=== PATIENT | female | born 1950 | race Two or more races ===

== ENCOUNTER → 2019-06-17 | Outpatient (CLI) | payer OTHER | END | disposition home or self-care (01) | LOC: RAD 12:34 | DX: M17.11 Unilateral primary osteoarthritis, right knee (principal) ==

== ENCOUNTER 2019-08-06 15:07 | Outpatient (CLI) | payer OTHER | END 2019-08-06 15:10 | disposition home or self-care (01) | LOC: RAD 15:07 | DX: M25.562 Pain in left knee (principal); M25.561 Pain in right knee ==

== ENCOUNTER 2020-04-26 12:41 | Outpatient (CLI) | payer OTHER | END 2020-04-26 12:53 | disposition home or self-care (01) | LOC: RAD 12:41 | PROVIDERS: ATTEND Physical Medicine & Rehabilitation | DX: M54.2 Cervicalgia (principal); M79.642 Pain in left hand; M79.641 Pain in right hand; M13.0 Polyarthritis, unspecified ==

== ENCOUNTER 2020-05-29 14:00 | Outpatient (CLI) | payer OTHER | END 2020-05-29 14:37 | disposition home or self-care (01) | LOC: NUCLEAR 14:00 | PROVIDERS: ATTEND Family Medicine | DX: M81.0 Age-related osteoporosis without current pathological fracture (principal) ==

== ENCOUNTER 2021-07-10 08:00 | Outpatient (CLI) | payer OTHER | END 2021-07-10 08:30 | disposition home or self-care (01) | LOC: PPH VACUNA 08:00 | PROVIDERS: ATTEND Emergency Medicine Pediatric Emergency Medicine | DX: Z23 Encounter for immunization (principal) ==

== ENCOUNTER 2021-11-29 07:44 | Outpatient (CLI) | payer OTHER | END 2021-11-29 07:55 | disposition home or self-care (01) | LOC: SONOGRAMA 07:44 | PROVIDERS: ATTEND Family Medicine | DX: R31.21 Asymptomatic microscopic hematuria (principal); R82.998 Other abnormal findings in urine ==

== ENCOUNTER 2022-02-19 08:00 | Outpatient (CLI) | payer OTHER | END 2022-02-19 08:30 | disposition home or self-care (01) | LOC: PPH VACUNA 08:00 | PROVIDERS: ATTEND Emergency Medicine Pediatric Emergency Medicine | DX: Z23 Encounter for immunization (principal); Z71.85 Encounter for immunization safety counseling ==

== ENCOUNTER 2022-06-04 15:38 | Outpatient (CLI) | payer OTHER | END 2022-06-04 15:46 | disposition home or self-care (01) | LOC: RAD 15:38 | DX: M79.671 Pain in right foot (principal) ==

== ENCOUNTER 2022-09-10 08:10 | Outpatient (CLI) | payer OTHER | END 2022-09-10 08:29 | disposition home or self-care (01) | LOC: MAMO-SONO 08:10 | PROVIDERS: ATTEND Family Medicine | DX: N60.11 Diffuse cystic mastopathy of right breast (principal); N60.12 Diffuse cystic mastopathy of left breast ==

== ENCOUNTER 2022-09-16 08:27 | Outpatient (CLI) | payer OTHER | END 2022-09-16 08:37 | disposition home or self-care (01) | LOC: PPH VACUNA 08:27 | PROVIDERS: ATTEND Emergency Medicine Pediatric Emergency Medicine | DX: Z23 Encounter for immunization (principal) ==

== ENCOUNTER 2022-10-21 13:12 | Outpatient (CLI) | payer OTHER | END 2022-10-21 13:15 | disposition home or self-care (01) | LOC: NUCLEAR 13:12 | PROVIDERS: ATTEND Family Medicine | DX: M85.80 Other specified disorders of bone density and structure, unspecified site (principal) ==

== ENCOUNTER 2023-08-07 14:44 | Outpatient (CLI) | payer OTHER | END 2023-08-07 14:54 | disposition home or self-care (01) | LOC: RAD 14:44 | PROVIDERS: ATTEND Family Medicine | DX: M13.0 Polyarthritis, unspecified (principal) ==

== ENCOUNTER → 2024-01-22 | Outpatient (CLI) | payer OTHER | END | disposition home or self-care (01) | LOC: MRI 08:37 | PROVIDERS: ATTEND Family Medicine | DX: M23.242 Derangement of anterior horn of lateral meniscus due to old tear or injury, left knee (principal) | CPT/HCPCS: 73723 ==

== ENCOUNTER 2024-10-20 16:01 | Outpatient (CLI) | payer OTHER | END 2024-10-20 16:10 | disposition home or self-care (01) | LOC: RAD 16:01 | PROVIDERS: ATTEND Family Medicine | DX: R05.1 Acute cough (principal) ==

== ENCOUNTER 2024-11-11 13:15 | Outpatient (CLI) | payer OTHER | END 2024-11-11 13:18 | disposition home or self-care (01) | LOC: NUCLEAR 13:15 | PROVIDERS: ATTEND Family Medicine | DX: M81.0 Age-related osteoporosis without current pathological fracture (principal); M85.80 Other specified disorders of bone density and structure, unspecified site ==